=== PATIENT | male | born 1990 | race Caucasian/White ===

== ENCOUNTER 2020-03-06 10:47 | Outpatient (CLI) | payer MEDICAID | END 2020-03-06 23:59 | disposition home or self-care (01) | LOC: RAD 10:47 | PROVIDERS: ATTEND Physician Assistant Medical | DX: S27.0XXD Traumatic pneumothorax, subsequent encounter (principal); R56.9 Unspecified convulsions; X58.XXXD Exposure to other specified factors, subsequent encounter | CPT/HCPCS: 95816 ==